=== PATIENT | female | born 1945 | race Caucasian/White ===

== ENCOUNTER 2023-10-16 14:11 | Outpatient (RCR) | payer MEDICARE, BC, SELFPAY | END 2023-10-16 23:59 | disposition home or self-care (01) | LOC: RPT 14:11 | PROVIDERS: ATTENDING PHYSICIAN Specialist; FAMILY PHYSICIAN Family Medicine | DX: M62.89 Other specified disorders of muscle (principal); N81.6 Rectocele; R15.9 Full incontinence of feces; K59.00 Constipation, unspecified; Z73.6 Limitation of activities due to disability | CPT/HCPCS: 97110; 97163; 97530 ==

== ENCOUNTER 2023-11-20 11:41 | Outpatient (RCR) | payer MEDICARE, BC, SELFPAY | END 2023-11-20 23:59 | disposition home or self-care (01) | LOC: RPT 11:41 | PROVIDERS: ATTENDING PHYSICIAN Specialist; FAMILY PHYSICIAN Family Medicine | DX: M62.89 Other specified disorders of muscle (principal); N81.6 Rectocele; R15.9 Full incontinence of feces; K59.00 Constipation, unspecified; Z73.6 Limitation of activities due to disability | CPT/HCPCS: 97112; 97140; 97530 ==

== ENCOUNTER 2023-12-01 06:44 | Day surgery (SDC) | payer MEDICARE, BC, SELFPAY ==
[2023-11-18 13:02] VITALS: BMI 25.7
[2023-12-01] VITALS (10 sets, daily range): BP systolic 122–137; BP diastolic 59–77; BMI 25.7
[2023-12-01] MEDS: Pyridium 200 MG PO (09:33)
[2023-12-01] MEDS: DILAUDID 0.25 MG IV (12:25)
== END 2023-12-01 14:15 | disposition home or self-care (01) ==
LOC: SDS 06:44
PROVIDERS: ATTENDING PHYSICIAN Obstetrics & Gynecology; FAMILY PHYSICIAN Family Medicine
DX: N81.6 Rectocele (principal); M62.89 Other specified disorders of muscle
CPT/HCPCS: 57250

== ENCOUNTER 2024-01-26 13:43 | Outpatient (RCR) | payer MEDICARE, BC, SELFPAY | END 2024-01-26 23:59 | disposition home or self-care (01) | LOC: RPT 13:43 | PROVIDERS: ATTENDING PHYSICIAN Specialist; FAMILY PHYSICIAN Family Medicine | DX: M62.89 Other specified disorders of muscle (principal); N81.6 Rectocele; R15.9 Full incontinence of feces; K59.00 Constipation, unspecified; Z73.6 Limitation of activities due to disability | CPT/HCPCS: 97110; 97140; 97164; 97530 ==

== ENCOUNTER 2024-03-03 10:50 | Outpatient (RCR) | payer MEDICARE, BC, SELFPAY | END 2024-03-03 15:25 | disposition home or self-care (01) | LOC: RPT 10:50 | PROVIDERS: ATTENDING PHYSICIAN Specialist; FAMILY PHYSICIAN Family Medicine | DX: M62.89 Other specified disorders of muscle (principal); N81.6 Rectocele; R15.9 Full incontinence of feces; K59.00 Constipation, unspecified; Z73.6 Limitation of activities due to disability | CPT/HCPCS: 97530 ==

== ENCOUNTER → 2024-05-07 14:26 | Outpatient (REF) | payer MEDICARE, BC, SELFPAY | LOC: HWRAD 14:26 | PROVIDERS: ATTENDING PHYSICIAN Otolaryngology Facial Plastic Surgery; FAMILY PHYSICIAN Family Medicine | DX: J32.3 Chronic sphenoidal sinusitis (principal); J34.3 Hypertrophy of nasal turbinates | CPT/HCPCS: 70486 ==

== ENCOUNTER → 2024-09-23 10:05 | Outpatient (REF) | payer MEDICARE, BC, SELFPAY | LOC: WDC 10:05 | PROVIDERS: ATTENDING PHYSICIAN Obstetrics & Gynecology; FAMILY PHYSICIAN Family Medicine | DX: Z12.31 Encounter for screening mammogram for malignant neoplasm of breast (principal) | CPT/HCPCS: 77063; 77067 ==

== ENCOUNTER → 2025-04-12 11:37 | Outpatient (REF) | payer MEDICARE, BC, SELFPAY ==
[2025-04-12 13:26] LABS: Ionized Calcium 1.34 mMOL/L (1.15-1.33)
[2025-04-12 13:54] LABS: ALT (SGPT) 38 U/L (0-35); AST (SGOT) 32 U/L (14-36); Albumin 4.4 g/dl (3.5-5.0); Alkaline Phosphatase 57 U/L (38-126); Blood Urea Nitrogen 20 mg/dl (7-17); Calcium 10.5 mg/dl (8.4-10.2); Carbon Dioxide 27 mmol/L (22-30); Chloride 107 mmol/L (98-107); Glucose 103 mg/dl (70-99); Magnesium 1.9 mg/dl (1.6-2.3); Potassium 5.2 mmol/L (3.5-5.1); Sodium 141 mmol/L (135-145); Total Bilirubin 0.5 mg/dl (0.2-1.3); Total Protein 7.4 g/dl (6.3-8.2); eGFR > 60.00
[2025-04-12 14:09] LABS: Vitamin D, 25-OH*** 68.6 ng/mL (30-80)
[2025-04-12 14:55] LABS: Intact PTH 157.3 pg/ml (13.6-85.8)
== END ==
LOC: HWRAD 11:37
PROVIDERS: ATTENDING PHYSICIAN Nurse Practitioner Family; FAMILY PHYSICIAN Family Medicine
DX: E83.52 Hypercalcemia (principal); E34.9 Endocrine disorder, unspecified
CPT/HCPCS: 36415; 76770; 80053; 82306; 82330; 83735; 83970; 84100

== ENCOUNTER → 2025-04-21 08:51 | Outpatient (REF) | payer MEDICARE, BC, SELFPAY ==
[2025-04-21 09:51] LABS: 24 Hour Urine Total Volume 1900 ml
[2025-04-21 10:22] LABS: 24 Hour Urine Creatinine 1.105 gm/day (0.8-1.8)
== END ==
LOC: RAD 08:51
PROVIDERS: ATTENDING PHYSICIAN Nurse Practitioner Family; FAMILY PHYSICIAN Family Medicine
DX: E83.52 Hypercalcemia (principal); E34.9 Endocrine disorder, unspecified
CPT/HCPCS: 76536; 81050; 82340; 82570

== ENCOUNTER → 2025-04-27 08:27 | Outpatient (REF) | payer MEDICARE, BC, SELFPAY | LOC: RAD 08:27 | PROVIDERS: ATTENDING PHYSICIAN Nurse Practitioner Family; FAMILY PHYSICIAN Family Medicine | DX: E83.52 Hypercalcemia (principal); E34.9 Endocrine disorder, unspecified | CPT/HCPCS: 78071; A9500 ==

== ENCOUNTER 2025-06-28 06:02 | Day surgery (SDC) | payer MEDICARE, BC, SELFPAY ==
[2025-06-14 13:47] VITALS: BMI 25.0
--- NOTE | 2025-06-15 14:22 | PTCARENOTE ---
Abn ECG, Dr. Gross notified, cardiac clearance requested. Dr. Santillan office notified.
[2025-06-28] VITALS (10 sets, daily range): BP systolic 150–173; BP diastolic 61–87; BMI 25.0
[2025-06-28] MEDS: NEURONTIN 300 MG PO (06:55)
[2025-06-28] MEDS: HEPARIN 5000 UNITS SC (06:55)
[2025-06-28] MEDS: TYLENOL 1000 MG PO (06:55)
[2025-06-28] MEDS: NORMOSOL-R/PLASMALYTE-A 1000 IV (06:56)
[2025-06-28 08:33] LABS: Turbo PTH 954.0 pg/ml (13.6-85.8)
--- NOTE | 2025-06-28 09:04 | OR.RPT ---
Operative Report
Operative Report
Date of Operation: June 28, 2025
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
Postoperative Diagnosis: Same
Surgeon: Dane Santillan M.D.
Operation: Minimally Invasive Right Superior and Inferior Parathyroidectomy - 00021
Anesthesia: GET
Estimated Blood Loss: 2 cc
Drains: None
Specimen: Right Superior and Inferior neck nodules, rule out parathyroid adenomas
Complications: None
Procedure:
The patient was taken to the operating room and placed in the usual supine position. After adequate general endotracheal anesthesia was established, the patient's neck was extended, prepped, and draped in the typical sterile fashion. A 4 cm
transcervical incision was made two fingerbreadths above the sternal notch. The skin incision was made with the #15 blade, and this was taken through the skin into the subcutaneous tissue. The underlying platysma muscle was divided, and subplatysmal
flaps were created superiorly to the thyroid cartilage and inferiorly to the sternal notch. Strap muscles were identified and at the midline.
Attention was turned to the patient's right side of the neck. The right thyroid lobe was mobilized medially. During this process, the right recurrent laryngeal nerve was identified and preserved throughout the surgery. The right upper and lower neck
nodules were identified and noted to be enlarged, excised, and sent to the pathology department, which showed hypercellular parathyroid glands. The intraoperative PTH levels normalized.
After obtaining adequate hemostasis, the strap muscles were reapproximated with #3-0 Vicryl in a running fashion. The platysma muscle was reapproximated with #3-0 Vicryl in an interrupted fashion, and the skin was approximated with #4-0 Monocryl in
a running subcuticular fashion. The Steri-Strips and sterile dressings were placed. The patient tolerated the procedure well. The final instrument, needle, and sponge counts were correct. The patient was extubated and transferred to the PACU.
[2025-06-28 09:28] LABS: Turbo PTH 89.7 pg/ml (13.6-85.8)
== END 2025-06-28 12:20 | disposition home or self-care (01) ==
LOC: SDS 06:02
PROVIDERS: ATTENDING PHYSICIAN Surgery; FAMILY PHYSICIAN Family Medicine
DX: E21.0 Primary hyperparathyroidism (principal)
CPT/HCPCS: 60500; 83970; 88305; 88331

== ENCOUNTER → 2025-07-14 15:09 | Outpatient (REF) | payer MEDICARE, BC, SELFPAY ==
[2025-07-14 16:19] LABS: ALT (SGPT) 38 U/L (0-35); AST (SGOT) 31 U/L (14-36); Albumin 4.0 g/dl (3.5-5.0); Alkaline Phosphatase 54 U/L (38-126); Blood Urea Nitrogen 21 mg/dl (7-17); Calcium 9.1 mg/dl (8.4-10.2); Carbon Dioxide 27 mmol/L (22-30); Chloride 109 mmol/L (98-107); Glucose 89 mg/dl (70-99); Potassium 4.0 mmol/L (3.5-5.1); Sodium 140 mmol/L (135-145); Total Protein 6.6 g/dl (6.3-8.2); eGFR > 60.00
== END ==
LOC: REG 15:09
PROVIDERS: ATTENDING PHYSICIAN Surgery; FAMILY PHYSICIAN Family Medicine
DX: E89.0 Postprocedural hypothyroidism (principal)
CPT/HCPCS: 36415; 80053; 83970